=== PATIENT | female | born 1970 | race Caucasian/White ===

== ENCOUNTER → 2021-08-03 14:47 | Outpatient (BNVA) | payer OTHER, SELFPAY | PROVIDERS: PCP Internal Medicine; Visit Provider Physician Assistant Medical | DX: S53.401A Unspecified sprain of right elbow, initial encounter (principal); Y04.0XXA Assault by unarmed brawl or fight, initial encounter | CPT/HCPCS: 73080; 99203 ==

== ENCOUNTER → 2021-08-10 10:46 | Outpatient (BNVA) | payer OTHER, SELFPAY | PROVIDERS: PCP Internal Medicine; Visit Provider Physician Assistant Medical | DX: S53.401A Unspecified sprain of right elbow, initial encounter (principal); X58.XXXA Exposure to other specified factors, initial encounter | CPT/HCPCS: 99213 ==

== ENCOUNTER → 2021-08-24 13:31 | Outpatient (BNVA) | payer OTHER, SELFPAY | PROVIDERS: PCP Internal Medicine; Visit Provider Physician Assistant Medical | DX: M77.11 Lateral epicondylitis, right elbow (principal); S46.811A Strain of other muscles, fascia and tendons at shoulder and upper arm level, right arm, initial encounter; X58.XXXA Exposure to other specified factors, initial encounter | CPT/HCPCS: 99213 ==

== ENCOUNTER 2021-08-25 11:00 | Outpatient (RCR) | payer OTHER, SELFPAY ==
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
--- NOTE | 2021-08-12 09:38 | MHC.OT.OD ---
[address] [phone] F: [phone] Occupational Therapy Daily Note Start Time: 804 End Time: 899 Visit Duration: 55 Billable Time: 55 Date of Evaluation: 08/12/21 Treatments to Date: 1 Cancellations to Date: No Shows to Date: Authorized Treatment: Insurance End Date: Subjective: Pt reports constant elbow pain since injury 9 days ago Pain Score: 6 Pain Location: Right elbow Objective: OT Eval completed.See eval for details Pt ed on elbow protection tech. Issued printed instructions Pt practice with donning and doffing a CFB. 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
--- NOTE | 2021-08-25 15:13 | MHC.OT.DC ---
[address] [phone] F: [phone] Occupational Therapy Discharge Note Provider: Veronica Constantino PA-C Diagnosis: Right elbow sprain Date of Surgery: Date of Evaluation: 08/12/21 Date of Discharge: 08/25/21 Treatments to Date: 5 Cancellations to Date: 0 No Shows to Date: 0 Discharge Status: Achieved Goals Improved Function Independent with HEP Discharge Summary: Pt is 3 wks s/p elbow strain. Arm edema and pain resolved. Pt now with a new complaint of occassional low pain at the cubital tunnel. Pt was instructed on cubital tunnel protection techniques. Progressed with resistive ther ex and functional activities. Pt primary concern is chronic right shoulder pain. She is scheduled for a PT eval next week and is returning to work. She states she doesn't anticipate any difficulty returning to work and is not required to participate in any physical restraints OT goals met. Electronically Signed By: Shalini Israel OT CHT CLT Reviewed/agree with student documentation: N/A Therapist: Please Sign and return to therapist, thank you for your referral.
== END 2021-09-22 15:06 | disposition home or self-care (01) ==
LOC: HO.OT 11:00
PROVIDERS: Visit Provider Physician Assistant Medical
DX: S53.401D Unspecified sprain of right elbow, subsequent encounter (principal)
CPT/HCPCS: 97033; 97035; 97110; 97140; 97165

== ENCOUNTER → 2021-09-07 11:40 | Outpatient (BNVA) | payer OTHER, SELFPAY | PROVIDERS: PCP Internal Medicine; Visit Provider Physician Assistant Medical | DX: M77.11 Lateral epicondylitis, right elbow (principal); S46.311D Strain of muscle, fascia and tendon of triceps, right arm, subsequent encounter; S46.811D Strain of other muscles, fascia and tendons at shoulder and upper arm level, right arm, subsequent encounter; X58.XXXD Exposure to other specified factors, subsequent encounter | CPT/HCPCS: 99213 ==

== ENCOUNTER → 2021-09-22 14:26 | Outpatient (BNVA) | payer OTHER, SELFPAY | PROVIDERS: PCP Internal Medicine; Visit Provider Physician Assistant | DX: M77.11 Lateral epicondylitis, right elbow (principal); S46.811D Strain of other muscles, fascia and tendons at shoulder and upper arm level, right arm, subsequent encounter; X58.XXXD Exposure to other specified factors, subsequent encounter | CPT/HCPCS: 99213 ==

== ENCOUNTER → 2021-10-08 14:18 | Outpatient (BNVA) | payer OTHER, SELFPAY | PROVIDERS: PCP Internal Medicine; Visit Provider Physician Assistant | DX: M77.11 Lateral epicondylitis, right elbow (principal); S46.811D Strain of other muscles, fascia and tendons at shoulder and upper arm level, right arm, subsequent encounter; S46.311D Strain of muscle, fascia and tendon of triceps, right arm, subsequent encounter; X58.XXXD Exposure to other specified factors, subsequent encounter | CPT/HCPCS: 99213 ==

== ENCOUNTER → 2021-10-20 10:10 | Outpatient (BNVA) | payer OTHER, SELFPAY | PROVIDERS: PCP Internal Medicine; Visit Provider Physician Assistant | DX: M77.11 Lateral epicondylitis, right elbow (principal); M54.2 Cervicalgia; S46.811D Strain of other muscles, fascia and tendons at shoulder and upper arm level, right arm, subsequent encounter; X58.XXXD Exposure to other specified factors, subsequent encounter | CPT/HCPCS: 72050; 99215 ==

== ENCOUNTER 2021-10-26 19:37 | Outpatient (REF) | payer OTHER, SELFPAY ==
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
== END 2021-10-26 19:38 | disposition home or self-care (01) ==
LOC: HO.MRI 19:37
PROVIDERS: Visit Provider Internal Medicine
DX: M54.2 Cervicalgia (principal); M47.12 Other spondylosis with myelopathy, cervical region; M48.02 Spinal stenosis, cervical region; R20.2 Paresthesia of skin
CPT/HCPCS: 72141

== ENCOUNTER → 2021-11-01 11:11 | Outpatient (BNVA) | payer OTHER, SELFPAY | PROVIDERS: PCP Internal Medicine; Visit Provider Physician Assistant Medical | DX: M54.2 Cervicalgia (principal) | CPT/HCPCS: 99213 ==

== ENCOUNTER 2021-11-03 08:00 | Outpatient (RCR) | payer OTHER, SELFPAY ==
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
--- NOTE | 2021-11-03 09:20 | MHC.PT.DC ---
[facility] [place] [facility] [place] [facility] [place] Office [address] Blair Sherman [address] [phone] F: [phone] F: [phone] F: [phone] F: [phone] Physical Therapy Discharge Report Diagnosis: R trapezius spasm Date of Surgery: NA Date of Evaluation: 09/01/21 Date of Discharge: 11/03/21 Treatments to Date: 16 Cancellations to Date: 0 No Shows to Date: 0 Discharge Status: Improved Function Independent with HEP Discharge Summary: Stephenie arrived for her last session stating she is feeling better. Her pain was in mid thoracic spine today. She followed up with car record clerk and also had a cervical MRI. IMPRESSION: Mild to moderate multilevel degenerative spondyloarthropathy of the cervical spine as described in detail above. Most notably, there is mild spinal canal stenosis and moderate neural foraminal stenoses at C5-C6. She was advised to perform PT for 8 more visits to address her neck pain. Pt however has been doing PT for last 8 weeks and has shown some improvements. She is independent with her HEPs as well. Due to this pt is being d/c from PT at this time. She is in agreement with the plan. All HEP were reviewed with her today. Electronically signed by: Keyana Thayer PT DPT Please sign and return to therapist. Thank you for your referral.
== END 2021-11-03 09:20 | disposition home or self-care (01) ==
LOC: HO.PT 08:00
PROVIDERS: PCP Internal Medicine; Visit Provider Physician Assistant Medical
DX: M62.831 Muscle spasm of calf (principal)
CPT/HCPCS: 97014; 97035; 97110; 97112; 97140; 97161